=== PATIENT | male | born 2000 | race Caucasian/White ===

== ENCOUNTER 2022-07-18 15:39 | Emergency (ER) | payer OTHER, SELFPAY ==
[2022-07-18 15:54] VITALS: BP 131/77; PULSE 92; RESP 14; TEMP 36.8; O2SAT 100; BMI 24.3
[2022-07-18] MEDS: HYDROcodone-acetaminophen 5-325 mg Tablet 1 TAB PO (16:45)
--- NOTE | 2022-07-18 17:31 | W.ED.WOUNDLC ---
HPI - Wound/Laceration General: Chief Complaint: Wound/Laceration Stated Complaint: finger lac w/box knife Time Seen by Provider: 07/18/22 16:58 History of Present Illness: 22-year-old male patient comes in today for complaints of injury to the index finger on the right hand. Patient has been using a spreader box operator and cut the pad of his right index finger. Patient appears nontoxic. Patient was in significant pain. Patient had a pressure dressing to the index finger. Injury occurred about 1230 this afternoon. Patient does not recall his last tetanus but refused 1 at this time. Review of Systems General: Reports: 10 or more systems reviewed and unremarkable except in HPI and below Skin/Breast: Reports: other (Laceration right index finger) Physical Exam Const: COMMON NORMALS: alert HENMT: COMMON NORMALS: normocephalic HEAD & SCALP: normocephalic Neck/C-Spine: COMMON NORMALS: full ROM Resp: COMMON NORMALS: normal respiratory effort Cardio: COMMON NORMALS: regular rate RATE: regular rate Extremity: RIGHT UPPER EXTREMITY: Yes hand & digits (2 cm laceration to the pad of the right index finger) Right hand and digits: Yes inspection, Yes palpation and Yes ROM exam Neuro: SENSORIUM/ORIENTATION: Yes alert Procedures Laceration Laceration 1: Site: hand Side (If applicable): right Size (cm): 2 Description: linear Depth: simple, single layer Local Anesthetic: lidocaine 1% Amount of anesthesia used (mL): 2 Skin layer closed with: nylon Size (cm): 5-0 Number of sutures: 4 Technique: horizontal mattress Course Vital Signs: Vital signs: Vital Signs Temperature 98.3 F 07/18/22 15:54 Pulse Rate 92 07/18/22 15:54 Respiratory Rate 14 07/18/22 15:54 Blood Pressure 131/77 07/18/22 15:54 Pulse Oximetry 100 07/18/22 15:54 Oxygen Delivery Me thod Room Air 07/18/22 15:54 MDM - Wound/Laceration Medical Decision Making 22-year-old male patient comes in today with injury to the right index finger. On exam patient has a 2 cm laceration to the right index finger. Cap refill is intact. Range of motion is intact. Differential diagnosis includes but not limited to foreign body, fracture, laceration, nail injury. No signs of nail injury, foreign body or fracture is noted. Wound was closed with patient's permission. Patient tolerated well. Patient was given 1 tablet of hydrocodone for his pain. Patient was recommended to keep the wound clean and dry and follow-up with primary care in 1 week. Patient reported understanding agreed to plan. Discharge Plan Discharge Patient Disposition: Home Clinical Impression: Finger laceration Qualifiers: Encounter type: initial encounter Finger: index finger Damage to nail status: without damage Foreign body presence: without foreign body Laterality: right Qualified Code(s): S61.210A - Laceration without foreign body of right index finger without damage to nail, initial encounter Condition: Stable Prescriptions: New amoxicillin-pot clavulanate 875-125 mg tablet 1 tab PO BID Qty: 14 0RF Discharge Orders: Discharge ED (Routine); Ordered 07/18/22 Ordered By: Alejandro Dumas Discharge Diet: Usual diet Discharge Activity: Increase activity as tolerated Patient Instructions: Finger Laceration (ED) Activity Restrictions/Additional Instructions: Keep wound clean and dry. You may leave the initial dressing on for 2 days as long as the dressing stays dry and clean. After that gently wash the wound with mild soap and water and cover with a light dressing. Sutures need to come out in 7 days, you may follow-up with primary care or return to the ER. Limit activity to the hand for the next 2 days to protect the wound site. Follow-up with primary care in 1 week for recheck. Return to ER for new concerns or worsening symptoms. Stand Alone Forms: Work/School Release Coding Level of Care Code ED Machine [employer] Sander for Valeria Paige
--- NOTE | 2022-07-21 12:37 | DCPLANNER ---
TCM called patient due to no primary care physician - no answer at this time.
== END 2022-07-18 17:45 | disposition home or self-care (01) ==
PROVIDERS: Emergency Provider Nurse Practitioner Family
DX: S61.210A Laceration without foreign body of right index finger without damage to nail, initial encounter (principal); W26.0XXA Contact with knife, initial encounter
CPT/HCPCS: 12001; 99283